=== PATIENT | female | born 2000 | race Caucasian/White ===

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

== ENCOUNTER 2021-05-23 11:13 | Emergency (ER) | payer MEDICAID, OTHER ==
[~2021-05-23] VITALS: Ht 167.6 cm; Wt 47.6 kg
[~2021-05-23 11:13] MED LIST: PREN1TAB80 PO
[2021-05-23 11:17] VITALS: BP 110/73
[2021-05-23] MEDS ORDERED: CEPH500B PO (12:44)
[2021-05-23] MEDS ORDERED: IBUP-2070 PO (12:44)
[2021-05-23] MEDS ORDERED: SULF1TAB42 PO (12:44)
== END 2021-05-23 13:52 | disposition home or self-care (01) ==
LOC: EDH 11:13
DX: N61.0 Mastitis without abscess (principal); Z79.1 Long term (current) use of non-steroidal anti-inflammatories (NSAID)

== ENCOUNTER 2022-12-13 13:51 | Observation (INO) | payer MEDICAID ==
[2022-12-13] VITALS (14 sets, daily range): BP systolic 93–114; BP diastolic 41–66; PULSE 72–91; RESP 15–20; O2SAT 100
[~2022-12-13] VITALS: Ht 165.1 cm; Wt 50.8 kg
[~2022-12-13 13:51] MED LIST changes: +CEPH500B PO; +IBUP-2070 PO; +SULF1TAB42 PO
[2022-12-13 14:34] LABS: APPEARANCE,URINE CLEAR (CLEAR); BILIRUBIN,URINE NEGATIVE (NEGATIVE); COLOR,URINE YELLOW (YELLOW); GLUCOSE, URINE (UA) NEGATIVE (NEGATIVE); KETONES,URINE 10 mg/dL (NEGATIVE); LEUKOCYTE ESTERASE ,URINE 75 Leu/uL (NEGATIVE); NITRATE,URINE NEGATIVE (NEGATIVE); OCCULT BLOOD,URINE NEGATIVE (NEGATIVE); PH,URINE 7.5 (5.0-8.0); PROTEIN,URINE 10 mg/dL (NEGATIVE); UROBILINOGEN,URINE 3 mg/dL (0.2-1.0)
[2022-12-13 14:39] LABS: HCG,QUALITATIVE URINE NEGATIVE (NEGATIVE)
[2022-12-13] MEDS ORDERED: DIATR MEGLU/DIATRIZOATE SODIUM 30 ML BOTTLE ONE (14:43)
[2022-12-13] MEDS ORDERED: IOHEXOL-350 75 ML VIAL IV ONE (14:43)
[2022-12-13 14:52] LABS: BASOPHILS % (AUTO) 0.4 % (0.0-5.0); EOSINOPHILS % (AUTO) 0.2 % (0.0-8.0); HEMATOCRIT 39.4 % (36-48); LYMPHOCYTES % (AUTO) 13.1 % (21.0-51.0); MEAN CORPUSCULAR HEMOGLOBIN 30.7 pg (27.0-33.0); MEAN CORPUSCULAR VOLUME 90.2 fL (79-99); MONOCYTES % (AUTO) 9.7 % (3.0-13.0); NEUTROPHILS % (AUTO) 76.2 % (40.0-77.0); PLATELET COUNT (AUTO) 209 K/uL (130-400); RED BLOOD CELL COUNT(AUTO) 4.37 MIL/uL (4.00-5.50); RED CELL DISTRIBUTION WIDTH 12.6 % (11.0-15.5); WHITE BLOOD COUNT (AUTO) 16.4 K/uL (4.8-10.8)
[2022-12-13 14:56] LABS: BACTERIA,URINE RARE /HPF (None Seen); MUCUS,URINE RARE LPF (None Seen); RBC,URINE 0-1 /HPF (0-1); RENAL EPITHELIAL CELLS,URINE RARE /HPF (None Seen); SQUAMOUS EPITHELIAL CELL,UR FEW /HPF (0-2)
[2022-12-13] MEDS ORDERED: ONDANSETRON 4MG INJ IVP ONE (15:00)
[2022-12-13] MEDS ORDERED: KETOROLAC 15MG/ML VIAL (15MG/ML) IV ONE (15:00)
[2022-12-13] MEDS ORDERED: ONDANSETRON 4MG INJ ONE ×2 (15:00→17:32)
[2022-12-13] MEDS ORDERED: KETOROLAC 15MG/ML VIAL (15MG/ML) ONE (15:00)
[2022-12-13 15:04] LABS: CARBON DIOXIDE 25 mmol/L (21-32); CHLORIDE 98 mmol/L (101-111); CREATININE 0.7 mg/dL (0.5-1.5); GLOMERULAR FILTR. RATE CALC 125 mL/min (>90); GLUCOSE,RANDOM 88 mg/dL (70-105); POTASSIUM 3.1 mmol/L (3.5-5.1); SODIUM SERUM 136 mmol/L (136-145); UREA NITROGEN, BLOOD 10 mg/dL (7-18)
[2022-12-13 15:11] LABS: ALANINE AMINOTRANSFERASE 12 U/L (12-78); ALBUMIN 4.2 g/dL (3.5-5.0); ASPARTATE AMINOTRANSFERASE 13 U/L (10-37)
[2022-12-13 15:12] LABS: LIPASE < 50 U/L (114-286)
[2022-12-13] MEDS ORDERED: LACTATED RINGERS 1000ML 1,000 ML IV SCH (16:30)
[2022-12-13] MEDS ORDERED: POTASSIUM CHLORIDE 10% ELIXIR 20 MEQ/15 ML UDCUP PO PRN (16:30)
[2022-12-13] MEDS ORDERED: MAGNESIUM 2GM PREMIX 50ML 50 ML IV PRN (16:30)
[2022-12-13] MEDS ORDERED: KCL 20 MEQ ERTAB PO PRN (16:30)
[2022-12-13] MEDS ORDERED: POTASSIUM CHLORIDE 20MEQ/100ML 100 ML IV PRN (16:30)
[2022-12-13] MEDS ORDERED: ZOSYN 3.375GM +NS 50ML IVPB ONE (16:30)
[2022-12-13] MEDS ORDERED: DEXAMETHASONE SOD PHOSPHATE 10MG/ML 1ML VIAL ONE (17:32)
[2022-12-13] MEDS ORDERED: PROPOFOL 10 MG/ML 20ML VIAL IV ONE (17:32)
[2022-12-13] MEDS ORDERED: MIDAZOLAM HCL 1 MG/ML 2ML VIAL ONE (17:32)
[2022-12-13] MEDS ORDERED: SUCCINYLCHOLINE 200MG/10ML SYR ONE (17:32)
[2022-12-13] MEDS ORDERED: FENTANYL CITRATE PF 50 MCG/1 ML 2ML VIAL ONE (17:33)
[2022-12-13] MEDS ORDERED: ROCURONIUM 10MG/1ML SYR 10 MG/ML ML ONE (17:33)
[2022-12-13] MEDS ORDERED: PHENYLEPHRINE HCL 10 MG/ML 1ML VIAL IV ONE (17:36)
[2022-12-13] MEDS ORDERED: DEXMEDETOMIDINE HCL 200 MCG/2 ML VIAL IV ONE (17:37)
[2022-12-13] MEDS ORDERED: BUPIVACAINE/PF 0.25% 30ML VIAL IJ ONE ×2 (18:04→18:14)
[2022-12-13] MEDS ORDERED: EPHEDRINE SULFATE 50 MG/ML AMPULE ONE (18:10)
[2022-12-13] MEDS ORDERED: GLYCOPYRROLATE 1 MG/5 ML SYRINGE ONE (18:13)
[2022-12-13] MEDS ORDERED: MEPERIDINE-PF 25 MG/ML SYG ONE ×2 (18:27→19:31)
[2022-12-13] MEDS ORDERED: NEOSTIGMINE 5MG/5ML SYR IV ONE (18:37)
[2022-12-13] MEDS: LACTATED RINGERS 1000ML 1,000 ML IV SCH (19:00)
[2022-12-13] MEDS ORDERED: ONDANSETRON 4MG INJ IVP PRN (19:00)
[2022-12-13] MEDS: METRONIDAZOLE 500MG/100ML BAG 100 ML IVPB SCH (19:50)
[2022-12-14] MEDS: ZOSYN 3.375GM+NS 50ML 50 ML IVPB SCH ×2 (01:00→08:46)
[2022-12-14] MEDS: MORPHINE 4 MG SYG IV PRN ×2 (01:00→07:57)
[2022-12-14 03:10] VITALS: BP 89/68; PULSE 68; RESP 20
[2022-12-14] MEDS: METRONIDAZOLE 500MG/100ML BAG 100 ML IVPB SCH (05:01)
[2022-12-14] MEDS: LACTATED RINGERS 1000ML 1,000 ML IV SCH (05:01)
[2022-12-14 06:28] LABS: BASOPHILS % (AUTO) 0.1 % (0.0-5.0); HEMATOCRIT 35.1 % (36-48); MEAN CORPUSCULAR HEMOGLOBIN 30.6 pg (27.0-33.0); MEAN CORPUSCULAR HGB CONC 33.6 g/dL (32.0-36.0); MEAN CORPUSCULAR VOLUME 91.2 fL (79-99); MONOCYTES % (AUTO) 3.7 % (3.0-13.0); NEUTROPHILS % (AUTO) 90.5 % (40.0-77.0); PLATELET COUNT (AUTO) 177 K/uL (130-400); RED BLOOD CELL COUNT(AUTO) 3.85 MIL/uL (4.00-5.50); RED CELL DISTRIBUTION WIDTH 12.6 % (11.0-15.5); WHITE BLOOD COUNT (AUTO) 9.1 K/uL (4.8-10.8)
[2022-12-14 06:48] LABS: ALBUMIN 3.4 g/dL (3.5-5.0); CREATININE 0.7 mg/dL (0.5-1.5); MAGNESIUM 1.9 mg/dL (1.80-2.40); POTASSIUM 4.5 mmol/L (3.5-5.1)
[2022-12-14 07:50] VITALS: BP 111/57; PULSE 66; RESP 20
[2022-12-14] MEDS ORDERED: PANTOPRAZOLE 40 MG/VIAL IVP SCH (09:00)
[2022-12-14 11:35] VITALS: BP 108/50; PULSE 64; RESP 20
[2022-12-14] MEDS ORDERED: ACETAMINOPHEN 325 MG TAB PO PRN (12:00)
[2022-12-14] MEDS ORDERED: KETOROLAC 15MG/ML VIAL (15MG/ML) IV PRN (12:00)
[2022-12-14] MEDS ORDERED: TRAMADOL HCL 50 MG TABLET PO PRN (12:30)
== END 2022-12-14 13:55 | disposition home or self-care (01) ==
LOC: EDH 13:51 → EDHIP 16:29 → INTOOBSV 16:29 → WSH 20:10
PROVIDERS: ADMIT Internal Medicine; ATTEND Internal Medicine
DX: K35.80 Unspecified acute appendicitis (principal); Z20.822 Contact with and (suspected) exposure to COVID-19; N39.0 Urinary tract infection, site not specified; D72.829 Elevated white blood cell count, unspecified; E87.6 Hypokalemia; G47.00 Insomnia, unspecified; K59.00 Constipation, unspecified; Z87.891 Personal history of nicotine dependence; Z79.899 Other long term (current) drug therapy; Z98.890 Other specified postprocedural states
CPT/HCPCS: 44970; 96365; 96366 ×3; 96375 ×2; 96368; 99285; 80053 ×2; 83690; 85025 ×2; 87040 ×2; 87088; 83605; 81001; 81025; 36415 ×2; 87635; 74177; 96376; 83735; A6207; J7120; J3010; J0330; J3490 ×8; J1100; J2710; J2250; J2405 ×2; J2175 ×2; J1885; J2371; Q9967; A6206; C1769 ×3; A4649 ×3; G0378 ×2; J2270 ×2; J2543 ×2; S0164; 96367; C9113; J2704; Q9963

== ENCOUNTER 2023-08-31 12:28 | Emergency (ER) | payer MEDICAID ==
[~2023-08-31] VITALS: Ht 165.1 cm; Wt 50.8 kg
[2023-08-31 12:37] VITALS: BP 120/68; PULSE 78; RESP 16
[2023-08-31] MEDS: KETOROLAC 15MG/ML VIAL (15MG/ML) IM ONE (13:26)
[2023-08-31 13:37] LABS: BASOPHILS # (AUTO) 0.07 K/uL (0.00-0.20); BASOPHILS % (AUTO) 1.2 % (0.0-5.0); EOSINOPHILS # (AUTO) 0.03 K/uL (0.00-0.70); EOSINOPHILS % (AUTO) 0.5 % (0.0-8.0); HEMATOCRIT 38.3 % (36-48); IMMATURE GRANULOCYTE ABSOLUTE 0.01 K/uL (0-1); LYMPHOCYTES # (AUTO) 1.5 K/uL (1.0-4.8); LYMPHOCYTES % (AUTO) 25.7 % (21.0-51.0); MEAN CORPUSCULAR HEMOGLOBIN 30.2 pg (27.0-33.0); MEAN CORPUSCULAR HGB CONC 33.9 g/dL (32.0-36.0); MEAN CORPUSCULAR VOLUME 88.9 fL (79-99); MONOCYTES # (AUTO) 0.5 K/uL (0.1-1.0); MONOCYTES % (AUTO) 8.7 % (3.0-13.0); NEUTROPHILS # (AUTO) 3.8 K/uL (1.8-7.7); NEUTROPHILS % (AUTO) 63.7 % (40.0-77.0); PLATELET COUNT (AUTO) 193 K/uL (130-400); RED BLOOD CELL COUNT(AUTO) 4.31 MIL/uL (4.00-5.50); RED CELL DISTRIBUTION WIDTH 12.5 % (11.0-15.5)
[2023-08-31 13:55] LABS: CREATININE 0.5 mg/dL (0.5-1.0); POTASSIUM 3.4 mmol/L (3.5-5.1)
[2023-08-31 13:58] LABS: ALBUMIN 4.1 g/dL (3.5-5.0); BILIRUBIN,TOTAL 0.4 mg/dL (0.2-1.0); TOTAL PROTEIN, SERUM 7.9 g/dL (6.0-8.3)
[2023-08-31] MEDS: POTASSIUM BICARB/CIT AC 25 MEQ TABLET.EFF PO ONE (14:23)
== END 2023-08-31 15:16 | disposition home or self-care (01) ==
LOC: EDH 12:28
DX: N64.4 Mastodynia (principal); R50.9 Fever, unspecified; Z90.49 Acquired absence of other specified parts of digestive tract
CPT/HCPCS: 99285; 80053; 85025; 81025; 36415; 76641; 96372; J1885

== ENCOUNTER 2024-08-01 11:18 | Emergency (ER) | payer SELFPAY ==
[~2024-08-01] VITALS: Ht 165.1 cm; Wt 49.9 kg
--- NOTE | 2024-08-01 11:30 | ERN ---
ED Note History of Present Illness Stated Complaint: MULT COMP Chief Complaint: Headache Time Seen by MD: 11:20 Dictation: PATIENT IS A 24-YEAR-OLD FEMALE COMING IN TODAY WITH HER WITH COMPLAINTS OF A FRONTAL SINUS HEADACHE SHE HAS HAD OFF AND ON FOR ONE WEEK. NO FEVER NO CHILLS NO NAUSEA VOMITING. SHE SAID SHE TOOK IBUPROFEN TWO DAYS AGO IN HIS TAKEN NOTHING TODAY PRIOR TO ARRIVAL FOR PAIN. NEUROLOGICALLY INTACT SPEECH IS CLEAR. SHE STATES SHE HAS A HISTORY OF MIGRAINE HEADACHES. Allergies: Coded Allergies: No Known Drug Allergies (Unverified Allergy, Unknown, 10/02/18) Home Meds Active Scripts Ondansetron (Ondansetron Odt) 4 Mg Tab.rapdis, 4 MG PO Q6HPRN PRN for nausea, #16 TAB 0 Refills Prov:CHRIS MORALES LICENSED [employer] 08/01/24 Methylprednisolone (Medrol) 4 Mg Tab.ds.pk, 1 TAB PO AD for 6 Days, #21 TAB 0 Refills 6 on day 1 then reduce by one tablet daily until gone Prov:CHRIS MORALES LICENSED [employer] 08/01/24 Ibuprofen (Ibuprofen 800 mg Tab) 800 Mg Tab, 800 MG PO Q8H PRN for fever or pain, #30 TAB 0 Refills Prov:CHRIS MORALES LICENSED [employer] 08/01/24 Past Medical History Past Medical History: No Pertinent History Surgical History: Appendectomy History: Not Applicable LMP: Jul 22, 2024 RN Note Reviewed/Agreed w/PFSH: Yes Review of System Dictation CONSTITUTIONAL: NEGATIVE EXCEPT FOR HPI HEAD/FACE: NEGATIVE EXCEPT FOR HPI EENT: NEGATIVE EXCEPT FOR HPI RESPIRATORY: NEGATIVE EXCEPT FOR HPI GASTROINTESTINAL/ABDOMINAL: NEGATIVE EXCEPT FOR HPI GENITOURINARY: NEGATIVE EXCEPT FOR HPI MUSCULOSKELETAL: NEGATIVE EXCEPT FOR HPI INTEGUMENTARY: NEGATIVE EXCEPT FOR HPI NEUROLOGICAL/PSYCH: NEGATIVE EXCEPT FOR HPI FRONTAL SINUS PAIN HEADACHE HEMATOLOGIC/LYMPHATIC: NEGATIVE EXCEPT FOR HPI ALL SYSTEMS NEGATIVE, EXCEPT NOTED ABOVE. 13 POINT REVIEW OF SYSTEMS ASSESSED AND ALL NEGATIVE EXCEPT FOR ABOVE. Initial Vital Sign VS Vital Signs Date Time Temp Pulse Resp B/P (MAP) Pulse Ox O2 Delivery O2 Flow Rate FiO2 08/01/24 11:23 98.1 115 18 93/60 97 Room Air 0 08/01/24 13:23 21 Physical Exam Dictation VITAL SIGNS REVIEWED GENERAL APPEARANCE: ALERT, ORIENTED X 3, MILD ACUTE DISTRESS, WELL DEVELOPED, NOURISHED. HEAD AND FACE: NON-TRAUMATIC. MILD FRONTAL SINUS TENDERNESS WITH PALPATION EYES: PERRL, PINK CONJUNCTIVAS, EYELID NO TRAUMA, ANTERIOR CHAMBER WITH ARCUS SENILIS. EARS: PINNAS INTACT AND NO SIGNS OF TRAUMA OR ERYTHEMA EAR CANALS CLEAR AND NO DISCHARGE TM NO ERYTHEMA NOSE: NO DISCHARGE, NO BLEEDING. OROPHARYNX: MOUTH NORMAL, TONGUE PINK, PHARYNX CLEAR,NO ERYTHEMA, TONSILS NO EXUDATES, NO ABSCESSES NOTED, MUCOUS MEMBRANE MOIST NECK: SUPPLE, NON-TENDER, NO THYROMEGALY, NO MASSES, NO JVD, NO BRUITS BREAST:DEFERRED CHEST:NO TENDERNESS, NO CREPITUS, NO PARADOXICAL MOVEMENT, NO RETRACTIONS LUNGS:CLEAR, WELL-VENTILATED, SYMMETRIC, NO RALES, NO WHEEZING, NO RHONCHI, NO STRIDOR, GOOD BREATH SOUNDS BILATERALLY HEART: REGULAR RATE, REGULAR RHYTHM, NO MURMUR, NO GALLOPS VASCULAR: NO PERIPHERAL EDEMA, ABDOMEN: SOFT, POSITIVE BOWEL SOUNDS, NONDISTENDED, NO GUARDING, NONTENDER, NO REBOUND, NO MASSES NO HEPATOMEGALY, NO SPLENOMEGALY, NO ROJAS'S SIGN, NO HERNIAS. RECTAL: DEFERRED GENITAL: DEFERRED NEUROLOGICAL: NORMAL SPEECH, MOTOR FUNCTION INTACT, SENSORY FUNCTION INTACT MUSCULOSKELETAL: NECK NONTENDER, FULL RANGE OF MOTION, BACK NONTENDER, FULL RANGE OF MOTION, EXTREMITIES: NONTENDER, FULL RANGE OF MOTION SKIN: COLOR PINK, DRY, NO TURGOR, NO RASH, NO LACERATIONS, NO ABRASIONS, NO CONTUSIONS. LYMPHATIC: DEFERRED Results (Laboratory/Radiology) Laboratory/Radiology Laboratory Tests Test 08/01/24 12:19 Urine HCG, Qualitative NEGATIVE (NEGATIVE) Labs Reviewed?: Yes ED Course ED Course Orders Procedure Category Date Status Time Acetaminophen 500mg PHA 08/01/24 Complete Tab (Tylenol 500mg T 11:30 Dexamethasone 4mg/Ml PHA 08/01/24 Complete 1ml Vial (Dexametha 11:30 ,Urine Test LAB 08/01/24 Complete 12:18 Ketorolac 60mg/2ml PHA 08/01/24 Complete (Toradol 60mg/2ml) 13:30 Current Medications Medications (Trade) Dose Ordered Sig/Deshawn Route PRN Reason Start Time Stop Time Status Last Admin Dose Admin Acetaminophen (TYLenol 500MG TAB) 1,000 mg ONCE ONCE PO 08/01/24 11:30 08/01/24 11:31 DC 08/01/24 13:29 Dexamethasone Sodium Phosphate (dexaMETHasone 4MG/ML 1ML VIAL) 8 mg ONCE ONCE IM 08/01/24 11:30 08/01/24 11:31 DC 08/01/24 13:30 Ketorolac Tromethamine (toRADol 60MG/ 2ML) 60 mg ONCE ONCE IM 08/01/24 13:30 08/01/24 13:31 DC 08/01/24 13:30 Vital Signs Date Time Temp Pulse Resp B/P (MAP) Pulse Ox O2 Delivery O2 Flow Rate FiO2 08/01/24 13:23 98.1 100 18 107/68 97 Room Air* 0 21 08/01/24 11:23 98.1 115 18 93/60 97 Room Air 0 1330/PATIENT TREATED FOR A SINUS HEADACHE. SHE WILL BE DISCHARGED HOME WITH IBUPROFEN/ZOFRAN/MEDROL DOSEPAK Medical Decision Making MDM MEDICAL DISCHARGE MAKING BASED ON EMPIRIC TREATMENT FOR AN ACUTE SINUS HEADACHE. PATIENT NEUROLOGICALLY INTACT AND IMPROVED AFTER TREATMENT. DISCHARGED HOME WITH MEDROL DOSEPAK/IBUPROFEN/ZOFRAN GIVEN A LIST OF LOCAL DOCTORS DX & DISP Disposition: Discharge Departure Impression: Primary Impression: Sinus headache Additional Impression: Nausea & vomiting Condition: Stable Scripts Ondansetron (Ondansetron Odt) 4 Mg Tab.rapdis 4 MG PO Q6HPRN PRN for nausea, #16 TAB 0 Refills Prov: CHRIS MORALES NP 08/01/24 Methylprednisolone (Medrol) 4 Mg Tab.ds.pk 1 TAB PO AD for 6 Days, #21 TAB 0 Refills 6 on day 1 then reduce by one tablet daily until gone Prov: CHRIS MORALES NP 08/01/24 Ibuprofen (Ibuprofen 800 mg Tab) 800 Mg Tab 800 MG PO Q8H PRN for fever or pain, #30 TAB 0 Refills Prov: CHRIS MORALES LICENSED [employer] 08/01/24 Additional Instructions: FOLLOW-UP WITH PRIMARY CARE PROVIDER IN 1 TO 2 DAYS. TAKE MEDICATIONS DIRECTED HERE IN THE EMERGENCY ROOM. OKAY TO CONTINUE HOME MEDICATIONS UNLESS OTHERWISE DISCUSSED DURING YOUR VISIT IN THE EMERGENCY ROOM TODAY. RETURN TO YOUR NEAREST EMERGENCY ROOM IF SYMPTOMS WORSEN OR IF THERE IS NO IMPROVEMENT. CALL 911 IF YOU NEED IMMEDIATE ASSISTANCE. TAKE TYLENOL OR MOTRIN [id number] NEEDED AND IF NO CONTRAINDICATIONS ARE PRESENT. INCREASE ORAL HYDRATION. A WOUND CULTURE OR URINE CULTURE WAS ORDERED HERE IN THE EMERGENCY ROOM DEPARTMENT PLEASE FOLLOW-UP WITH PRIMARY CARE PROVIDER AND ADVISE THEM TO GET REPEAT PORTS FROM OUR FACILITY. IF YOU HAD ANY LOU WRAP/SPLINTS THAT WERE APPLIED HERE, PLEASE DO NOT REMOVE THEM UNTIL YOU SEE YOUR PRIMARY CARE OR SPECIALTY. TAKE IBUPROFEN EVERY8 HOURS WITH FOOD FOR THE NEXT TWO DAYS. TAKE MEDROL DOSEPAK DIRECTED UNTIL GONE. , INCREASE YOUR WATER INTAKE. Referrals: SILVA JAMES MD (PCP) Time of Disposition: 13:29 I have reviewed the case, and I agree with, Diagnosis and Plan CHRIS MORALES NP Aug 01, 2024 11:30 DEV KHOURY DO Aug 01, 2024 19:01
[2024-08-01 13:23] VITALS: BP 107/68; PULSE 100; RESP 18; TEMP 98.1; O2SAT 97
[2024-08-01] MEDS: acetaMINOPHEN 500 MG TABLET PO ONE (13:29)
[2024-08-01] MEDS: dexaMETHasone SOD PHOSPHATE 4 MG/ML 1ML VIAL IM ONE (13:30)
[2024-08-01] MEDS: ketOROlac 60 MG VIAL (30MG/ML) IM ONE (13:30)
[2024-08-01] MEDS ORDERED: IBUP-2077 PO (13:31)
[2024-08-01] MEDS ORDERED: ONDA-243 PO (13:31)
[2024-08-01] MEDS ORDERED: METH4TAB3 PO (13:31)
== END 2024-08-01 13:40 | disposition home or self-care (01) ==
LOC: EDH 11:18
DX: R51.9 Headache, unspecified (principal); R11.2 Nausea with vomiting, unspecified; Z90.49 Acquired absence of other specified parts of digestive tract
CPT/HCPCS: 99284; 81025; 96372 ×2; J1100; J1885